=== PATIENT | female | born 1965 | race Caucasian/White ===

== ENCOUNTER 2018-01-30 17:05 | Emergency (ER) | payer OTHER, MEDICARE ==
[2018-01-30 17:25] VITALS: BP 117/76
[2018-01-30] MEDS ORDERED: CYCLOBENZAPRINE HCL 10 MG TABLET PO ONE (17:49)
[2018-01-30] MEDS ORDERED: HYDROCODONE/ACETAMINOPHEN 5-325 MG TABLET PO ONE (17:49)
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
[2018-01-30] MEDS ORDERED: HYDROCODONE/ACETAMINOPHEN 5-325 MG (6 TAB/ER DISP) PO PRN (18:49)
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
== END 2018-01-30 19:20 | disposition home or self-care (01) ==
LOC: ER 17:05
DX: M54.5 Low back pain (principal); M54.2 Cervicalgia; M25.552 Pain in left hip; V49.40XA Driver injured in collision with unspecified motor vehicles in traffic accident, initial encounter; F17.200 Nicotine dependence, unspecified, uncomplicated; E11.9 Type 2 diabetes mellitus without complications; Z98.1 Arthrodesis status
CPT/HCPCS: 99284; 72110; 72125; L0120